=== PATIENT | male | born 1975 | race Caucasian/White ===

== ENCOUNTER 2017-12-06 10:23 | Emergency (ER) | payer BC ==
--- NOTE | 2017-12-06 11:35 | RAD REPORT ---
EXAM DESCRIPTION: CT - Stone Protocol - 12/06/2017 11:19 am CLINICAL HISTORY: Abdominal pain, left flank pain COMPARISON: CT imaging April 2010 TECHNIQUE: Axial 3 mm thick images were obtained without oral or IV contrast. The [id number] span s the entirety of the system including uppermost abdomen and lung bases. All CT scans are performed using dose optimization technique as appropriate and may include automated exposure control or mA/KV adjustment according to patient size. FINDINGS: Mild hydronephrosis is present secondary to a 3 mm left UVJ calculus. No right-sided hydro nephrosis. Patient has bilateral 1-3 mm caliceal calculi. These are multiple calcifications of each k idney scattered in upper mid and lower portions. No suspicious renal masses. Isodense masses and pyel onephritis are not excluded on a stone protocol CT scan. Mostly contracted urinary bladder shows no s uspicious finding. Pelvic floor phleboliths are present. Prostate gland and seminal vesicles are norm al range. Calcifications are more numerous and larger than seen in 2011. Imaged portions of the liver, spleen and pancreas show no suspicious findings on non-contrast imaging . No gallbladder or biliary tree abnormality identified. No significant adrenal finding. No suspicious bowel findings. No appendicitis. No hernia, mass or bulky lymphadenopathy noted. No free air, free fluid or inflammatory stranding. No significant bony abnormality. IMPRESSION: Mild left-sided hydronephrosis secondary to a 3 mm left UVJ calculus. Multiple bilateral nonobstructing caliceal calculi increased in both size and number since 2010. Isodense masses and pyelonephritis are not excluded on stone protocol technique.
[2017-12-06] MEDS ORDERED: KETOROLAC 30 MG/ML INJ ONE (12:25)
[2017-12-06] MEDS ORDERED: NA CHLORIDE 0.9% 1,000 ML ONE (12:26)
[2017-12-06] MEDS ORDERED: ONDANSETRON 4 MG/2 ML VIAL ONE (12:26)
[2017-12-06 12:46] LABS: Absolute Lymphocytes (CBC) 0.6 K/uL (0.7-4.9); Absolute Monocytes 0.4 K/uL (0.1-1.3); Absolute Neutrophil 9.3 K/uL (1.8-8.0); Basophils % 0.3 % (0-1.3); Eosinophils % 0.1 % (0-4.4); Hematocrit 40.2 % (39.6-49.0); Lymphocytes % 5.9 % (15.3-44.8); MCH 31.2 pg (27.0-35.0); MCV 91.6 fL (80-100); MPV 9.6 fL (7.6-11.3); Monocytes % 3.5 % (3.3-12.3); RBC Red Blood Cell Count 4.39 M/uL (4.33-5.43)
[2017-12-06 13:17] LABS: Blood Morphology Comment NOT SEEN (NOT SEEN); Platelet Estimate ADEQ; Urine White Blood Cell Casts OK
--- NOTE | 2017-12-06 14:19 | ER ---
Nurse's Notes [facility] Name: Emily Golden Age: 42 yrs Sex: Male : 1975 Arrival Date: 12/06/2017 Time: : Bed 14 Private MD: Diagnosis: Hydronephrosis with renal and ureteral calculous obstruction Presentation: 12/06 11:04 Presenting complaint: Patient states: Left flank pain since 0830 this AM. Reports aj vomiting x 1 episode. Transition of care: patient was not received from another setting of care. Onset of symptoms was December 06, 2017. Risk Assessment: Do you want to hurt yourself or someone else? Patient reports no desire to harm self or others. Initial Sepsis Screen: Does the patient meet any 2 criteria? No. Patient's initial sepsis screen is negative. Does the patient have a suspected source of infection? No. Patient's initial sepsis screen is negative. Care prior to arrival: None. 11:04 Method Of Arrival: Ambulatory aj 11:04 Acuity: VIVIAN 3 aj Triage Assessment: 11:08 General: Appears in no apparent distress. uncomfortable, Behavior is calm, cooperative, aj appropriate for age. Pain: Complains of pain in anterior aspect of left lateral abdomen and posterior aspect of left lateral abdomen. Neuro: Level of Consciousness is awake, alert, obeys commands, Oriented to person, place, time, situation, Appropriate for age. Respiratory: Airway is patent Respiratory effort is even, unlabored, Respiratory pattern is regular, symmetrical. GI: Reports nausea, vomiting. : Reports pain in left flank(s). Derm: Skin is intact, is healthy with good turgor, Skin is pink, warm \T\ dry. normal. Historical: - Allergies: 11:08 No Known Allergies; aj - Home Meds: 11:08 None [Active]; aj - PMHx: 11:08 None; aj - PSHx: 11:08 None; aj - Immunization history:: Adult Immunizations up to date. - Social history:: Smoking status: Patient/guardian denies using tobacco. - Ebola Screening: : Patient negative for fever greater than or equal to 101.5 degrees Fahrenheit, and additional compatible Ebola Virus Disease symptoms Patient denies exposure to infectious person Patient denies travel to an Ebola-affected area in the 21 days before illness onset No symptoms or risks identified at this time. Screenin:20 Abuse screen: Denies threats or abuse. Nutritional screening: No deficits noted. em Tuberculosis screening: No symptoms or risk factors identified. Fall Risk None identified. Assessment: 12:20 General: Appears in no apparent distress. comfortable, Behavior is calm, cooperative, em Denies fever. Pain: Complains of pain in abdomen and posterior aspect of left lateral abdomen. Neuro: Level of Consciousness is awake, alert, obeys commands, Oriented to person, place, time, situation. Cardiovascular: Capillary refill < 3 seconds Patient's skin is warm and dry. Respiratory: Airway is patent Respiratory effort is even, unlabored, Respiratory pattern is regular, symmetrical. GI: Abdomen is flat, Bowel sounds present X 4 quads. Abd is soft X 4 quads Abdomen is tender to palpation in left lower quadrant Reports nausea, vomiting. : Reports burning with urination, pain. EENT: No signs and/or symptoms were reported regarding the EENT system. Derm: Skin is intact, Skin is pink, warm \T\ dry. Musculoskeletal: Range of motion: intact in all extremities. 12:20 Reassessment: I agree with assessment completed by José Antonio Leary LVN . Pain: Pain began aa5 this morning. 13:31 Reassessment: Patient appears in no apparent distress at this time. Patient and/or em family updated on plan of care and expected duration. Pain level reassessed. Patient is alert, oriented x 3, equal unlabored respirations, skin warm/dry/pink. Patient denies pain at this time. Patient states feeling better. Patient states symptoms have improved. 14:20 Reassessment: Patient appears in no apparent distress at this time. Patient and/or em family updated on plan of care and expected duration. Pain level reassessed. Patient is alert, oriented x 3, equal unlabored respirations, skin warm/dry/pink. pt ambulated to restroom to provide UA, tolerated well Patient denies pain at this time. Patient states feeling better. Patient states symptoms have improved. Vital Signs: 11:08 BP 129 / 85; Pulse 64; Resp 18; Pulse Ox 100% on R/A; Weight 65.77 kg; Height 6 ft. 0 aj in. (182.88 cm); 12:30 BP 120 / 76; Pulse 62; Resp 18; Pulse Ox 100% on R/A; Pain 8/10; em 13:28 BP 105 / 67; Pulse 71; Resp 19; Pulse Ox 99% on R/A; Pain 0/10; em 14:37 BP 112 / 67; Pulse 67; Resp 16; Pulse Ox 99% on R/A; Pain 0/10; em 11:08 Body Mass Index 19.67 (65.77 kg, 182.88 cm) ED Course: 10:27 Patient arrived in ED. rg4 11:08 Triage completed. aj 11:08 Arm band placed on right wrist. Patient placed in an exam room. aj 11:18 CT completed. Patient moved to CT via wheelchair. Patient moved back from CT. cw1 11:19 CT Stone Protocol In Process Unspecified. EDMS 12:00 Angel Amaya PA is PHCP. jr8 12:00 Eugene Tellez MD is Attending Physician. jr8 12:16 José Antonio Leary LVN is Primary Nurse. em 12:20 Patient has correct armband on for positive identification. Bed in low position. Call em light in reach. Adult w/ patient. Pulse ox on. NIBP on. 12:20 No provider procedures requiring assistance completed. Initial lab(s) drawn, by me, em sent to lab. Inserted saline lock: 20 gauge in right antecubital area, using aseptic technique. Blood collected. 14:18 Thai Hamilton MD is Referral Physician. jr8 14:37 IV discontinued, intact, bleeding controlled, No redness/swelling at site. Pressure em dressing applied. Administered Medications: 12:33 Drug: TORadol 30 mg Route: IVP; Site: right antecubital; aa5 13:17 Follow up: Response: No adverse reaction; Pain is decreased em 12:33 Drug: Zofran 4 mg Route: IVP; Site: right antecubital; aa5 13:17 Follow up: Response: No adverse reaction em 12:33 Drug: NS 0.9% 1000 ml Route: IV; Rate: 1000 ml; Site: right antecubital; aa5 13:42 Follow up: IV Status: Completed infusion; IV Intake: 1000ml em Intake: 13:42 IV: 1000ml; Total: 1000ml. em Outcome: 14:18 Discharge ordered by . jr8 14:37 Discharged to home ambulatory. em 14:37 Condition: good 14:37 Discharge instructions given to patient, family, Instructed on discharge instructions, follow up and referral plans. Demonstrated understanding of instructions, follow-up care, medications, Prescriptions given X 3. 14:39 Patient left the ED. em Signatures: Dispatcher [employer] Christa Tian, RN José Antonio Smith, SHIFT MGR SHIFT MGR em Dagmar Ba RN RN [email or web address] Yolanda Mike cw1 Angel Amaya PA PA jr8 Claudia Constantino rg4 Corrections: (The following items were deleted from the chart) 13:28 13:28 BP 105 / 67; Pulse 71bpm; Resp 99bpm; Pulse Ox 99% RA; Pain 0/10; em em
--- NOTE | 2017-12-06 14:19 | EDPHYS ---
Physician Documentation [facility] Name: Emily Golden Age: 42 yrs Sex: Male : 1975 Arrival Date: 12/06/2017 Time: : Bed 14 Private MD: ED Physician Eugene Tellez HPI: 12/06 13:38 This 42 yrs old Male presents to ER via Ambulatory with complaints of jr8 Possible Kidney Stone. 13:38 The patient complains of pain in the left flank. The pain does not radiate. Onset: The jr8 symptoms/episode began/occurred acutely, today. Modifying factors: The symptoms are alleviated by nothing. the symptoms are aggravated by nothing. Associated signs and symptoms: Pertinent positives: nausea. Severity of pain: At its worst the pain was moderate in the emergency department the pain is unchanged. The patient has experienced similar episodes in the past, a few times. The patient has not recently seen a physician. Historical: - Allergies: 11:08 No Known Allergies; aj - Home Meds: 11:08 None [Active]; aj - PMHx: 11:08 None; aj - PSHx: 11:08 None; aj - Immunization history:: Adult Immunizations up to date. - Social history:: Smoking status: Patient/guardian denies using tobacco. - Ebola Screening: : Patient negative for fever greater than or equal to 101.5 degrees Fahrenheit, and additional compatible Ebola Virus Disease symptoms Patient denies exposure to infectious person Patient denies travel to an Ebola-affected area in the 21 days before illness onset No symptoms or risks identified at this time. ROS: 13:38 Eyes: Negative for injury, pain, redness, and discharge, ENT: Negative for injury, jr8 pain, and discharge, Neck: Negative for injury, pain, and swelling, Cardiovascular: Negative for chest pain, palpitations, and edema, Respiratory: Negative for shortness of breath, cough, wheezing, and pleuritic chest pain, MS/Extremity: Negative for injury and deformity, Skin: Negative for injury, rash, and discoloration, Neuro: Negative for headache, weakness, numbness, tingling, and seizure. 13:38 Abdomen/GI: Positive for nausea and vomiting, Negative for abdominal pain, diarrhea, constipation, abdominal cramps, abdominal distension, anorexia, dysphagia, hematemesis, black/tarry stool, rectal pain, rectal bleeding, bowel incontinence, flatulence. 13:38 Back: Positive for flank pain, on the left. Exam: 13:38 Eyes: Pupils equal round and reactive to light, extra-ocular motions intact. Lids and jr8 lashes normal. Conjunctiva and sclera are non-icteric and not injected. Cornea within normal limits. Periorbital areas with no swelling, redness, or edema. ENT: Nares patent. No nasal discharge, no septal abnormalities noted. Tympanic membranes are normal and external auditory canals are clear. Oropharynx with no redness, swelling, or masses, exudates, or evidence of obstruction, uvula midline. Mucous membranes moist. Neck: Trachea midline, no thyromegaly or masses palpated, and no cervical lymphadenopathy. Supple, full range of motion without nuchal rigidity, or vertebral point tenderness. No Meningismus. Cardiovascular: Regular rate and rhythm with a normal S1 and S2. No gallops, murmurs, or rubs. Normal PMI, no JVD. No pulse deficits. Respiratory: Lungs have equal breath sounds bilaterally, clear to auscultation and percussion. No rales, rhonchi or wheezes noted. No increased work of breathing, no retractions or nasal flaring. Abdomen/GI: Soft, non-tender, with normal bowel sounds. No distension or tympany. No guarding or rebound. No evidence of tenderness throughout. Skin: Warm, dry with normal turgor. Normal color with no rashes, no lesions, and no evidence of cellulitis. MS/ Extremity: Pulses equal, no cyanosis. Neurovascular intact. Full, normal range of motion. Neuro: Awake and alert, GCS 15, oriented to person, place, time, and situation. Cranial nerves II-XII grossly intact. Motor strength 5/5 in all extremities. Sensory grossly intact. Cerebellar exam normal. Normal gait. 13:38 Back: pain, that is moderate, of the left flank, ROM is normal, normal spinal alignment noted, CVA tenderness, that is mild, vertebral tenderness, is not appreciated. Vital Signs: 11:08 BP 129 / 85; Pulse 64; Resp 18; Pulse Ox 100% on R/A; Weight 65.77 kg; Height 6 ft. 0 aj in. (182.88 cm); 12:30 BP 120 / 76; Pulse 62; Resp 18; Pulse Ox 100% on R/A; Pain 8/10; em 13:28 BP 105 / 67; Pulse 71; Resp 19; Pulse Ox 99% on R/A; Pain 0/10; em 14:37 BP 112 / 67; Pulse 67; Resp 16; Pulse Ox 99% on R/A; Pain 0/10; em 11:08 Body Mass Index 19.67 (65.77 kg, 182.88 cm) MDM: 12:10 Patient medically screened. 8 13:38 Data reviewed: vital signs, nurses notes, lab test result(s), radiologic studies, CT jr8 scan. Data interpreted: Pulse oximetry: on room air is 99 %. Interpretation: normal. Counseling: I had a detailed discussion with the patient and/or guardian regarding: the historical points, exam findings, and any diagnostic results supporting the discharge/admit diagnosis, lab results, radiology results, the need for outpatient follow up, a urologist, to return to the emergency department if symptoms worsen or persist or if there are any questions or concerns that arise at home. Response to treatment: the patient's symptoms have markedly improved after treatment. 12/06 12:11 Order name: Basic Metabolic Panel; Complete Time: 13:20 jr8 12/06 12:11 Order name: CBC with Diff; Complete Time: 13:20 [facility] 12/06 11:04 Order name: CT Stone Protocol; Complete Time: 12:10 12/06 12:51 Order name: CBC Smear Scan; Complete Time: 13:20 EDN[facility] 12/06 14:37 Order name: Urine Dipstick--Ancillary (enter results) 12/06 12:11 Order name: IV Saline Lock; Complete Time: 12:34 jr8 12/06 12:11 Order name: Labs collected and sent; Complete Time: 12:34 8 12/06 12:12 Order name: Urine Dipstick-Ancillary (obtain specimen); Complete Time: 14:20 jr8 Administered Medications: 12:33 Drug: TORadol 30 mg Route: IVP; Site: right antecubital; aa5 13:17 Follow up: Response: No adverse reaction; Pain is decreased em 12:33 Drug: Zofran 4 mg Route: IVP; Site: right antecubital; aa5 13:17 Follow up: Response: No adverse reaction em 12:33 Drug: NS 0.9% 1000 ml Route: IV; Rate: 1000 ml; Site: right antecubital; aa5 13:42 Follow up: IV Status: Completed infusion; IV Intake: 1000ml em Disposition: 17:53 Co-signature as Attending Physician, Eugene Tellez MD. Disposition: 12/06/17 14:18 Discharged to Home. Impression: Hydronephrosis with renal and ureteral calculous obstruction. - Condition is Stable. - Discharge Instructions: Kidney Stones, Hydronephrosis. - Prescriptions for Tylenol- Codeine #3 300-30 mg Oral Tablet - take 2 tablets by ORAL route every 6 hours As needed; 20 tablet. Flomax 0.4 mg Oral Capsule, Sust. Release 24 hr - take 1 capsule by ORAL route once daily 1/2 hour following the same meal each day; 30 capsule. Zofran 4 mg Oral Tablet - take 1 tablet by ORAL route every 12 hours As needed; 20 tablet. - Medication Reconciliation Form, Thank You Letter, Antibiotic Education, Prescription Opioid Use form. - Follow up: Thai Hamilton MD; When: 2 - 3 days; Reason: Recheck today's complaints, Continuance of care, Re-evaluation by your physician. - Problem is new. - Symptoms have improved. Signatures: Dispatcher [employer] Christa Tian RN RN José Antonio Euceda, MUSIC PROFESSOR MUSIC PROFESSOR Dagmar Tang RN RN aa5 Angel Amaya PA PA jr8 Eugene Tellez MD MD Corrections: (The following items were deleted from the chart) 14:39 14:18 12/06/2017 14:18 Discharged to Home. Impression: Hydronephrosis with renal and em ureteral calculous obstruction. Condition is Stable. Prescriptions for Tylenol-Codeine #3 300-30 mg Oral Tablet - take 2 tablets by ORAL route every 6 hours As needed; 20 tablet, Flomax 0.4 mg Oral Capsule, Sust. Release 24 hr - take 1 capsule by ORAL route once daily 1/2 hour following the same meal each day; 30 capsule, Zofran 4 mg Oral Tablet - take 1 tablet by ORAL route every 12 hours As needed; 20 tablet. and Forms are Medication Reconciliation Form, Thank You Letter, Antibiotic Education, Prescription Opioid Use. Follow up: Thai Hamilton; When: 2 - 3 days; Reason: Recheck today's complaints, Continuance of care, Re-evaluation by your physician. Problem is new. Symptoms have improved. jr8
[2017-12-06 20:23] LABS: Urine Blood 2+ (NEG); Urine Glucose NEGATIVE (NEG); Urine Protein NEGATIVE (NEG); Urine Specific Gravity 1.015 (1.005-1.030)
== END 2017-12-06 14:39 | disposition home or self-care (01) ==
LOC: ER 10:23
DX: N13.2 Hydronephrosis with renal and ureteral calculous obstruction (principal)
CPT/HCPCS: 36415; 74176; 76377; 80048; 81003; 85025; 96361; 96374; 96375; 99284; J2405; J7030